=== PATIENT | male | born 1980 | race Caucasian/White ===

== ENCOUNTER 2018-06-09 07:25 | Emergency (ER) | payer OTHER ==
[2018-06-09] MEDS: morphine LIQ (10 MG/5 ML) CUP PO (08:07)
[2018-06-09] MEDS: METHYLPREDNISOLONE 125 MG INJ IM (08:07)
== END 2018-06-09 08:27 | disposition home or self-care (01) ==
LOC: FTE 07:25
DX: M10.9 Gout, unspecified (principal); F17.210 Nicotine dependence, cigarettes, uncomplicated
CPT/HCPCS: 96372; 99284-25